=== PATIENT | female | born 1980 ===

== ENCOUNTER 2017-05-02 13:28 | Emergency (ER) | payer OTHER ==
[~2017-05-02] VITALS: Ht 167.6 cm; Wt 59.1 kg
[~2017-05-02 13:28] MED LIST: ASCO100089 PO; BUPR2TAB SL; IBUP-1827 PO; OMEG-145 PO; PREN-12 PO
[2017-05-02 13:33] VITALS: BP 155/85; PULSE 87; RESP 16; O2SAT 99
--- NOTE | 2017-05-02 13:45 | ED.REPORT ---
HPI-Back Pain Under 40 Date of Service May 02, 2017 ED Provider: Yvette Voss Nursing Notes Stated Complaint: FLANK PAIN Chief Complaint: Female Abdominal Pain Allergies: Coded Allergies: No Known Allergies (Unverified , 05/02/17) Scheduled Ascorbic Acid (Vitamin C) 1,000 Mg Tab.chew 1,000 MG PO DAILY Buprenorphine (Buprenorphine) 2 Mg Tab.subl 8 MG SL DAILY [place]-3/Dha/Epa/Fish Oil ([place] 3 500 Softgel) 500 Mg (200 Mg-300 Mg)-1,000 Mg Capsule 1 EACH PO TID Vit W-Ca,Fe,FA(<1 mg) ( Formula) 1 Each Tablet 1 EACH PO DAILY Scheduled PRN Ibuprofen (Ibuprofen) 600 Mg Tablet 600 MG PO QID PRN PRN For Pain General Time Seen by MD: 13:45 Past Medical History Smoking History Current Every Day Smoker, Light Tobacco Smoker Physical Exam Initial Vital Signs Vital Signs (First) Date Time Temp Pulse Resp B/P Pulse Ox O2 Delivery O2 Flow Rate FiO2 05/02/17 13:33 37.2 87 16 155/85 99 Room Air Discharge & Departure Referrals: Tu Schafer MD (PCP) Yvette Voss May 02, 2017 13:45 Jami Barclay MD May 02, 2017 13:47
--- NOTE | 2017-05-02 13:47 | ED.REPORT ---
HPI- Female Date of Service May 02, 2017 ED Provider: Jami Barclay MD Patient is 36 year old female with a history of fibromyalgia who presents to the ED complaining of dysuria onset this morning. Associated symptoms include bilateral flank pain, chills, nausea, vomiting, increased fatigue and decreased appetite. She denies fever, diarrhea or constipation. The patient reports that she had a UTI 3 months ago and prescribed an antibiotic. She states that she felt her symptoms start to come on slightly last night so she took an Azo and drank lots of fluids. Nursing Notes Stated Complaint: FLANK PAIN Chief Complaint: Female Abdominal Pain Nursing Notes Reviewed: Yes Allergies: Coded Allergies: No Known Allergies (Unverified , 05/02/17) Scheduled Ascorbic Acid (Vitamin C) 1,000 Mg Tab.chew 1,000 MG PO DAILY Buprenorphine (Buprenorphine) 2 Mg Tab.subl 8 MG SL DAILY [place]-3/Dha/Epa/Fish Oil ([place] 3 500 Softgel) 500 Mg (200 Mg-300 Mg)-1,000 Mg Capsule 1 EACH PO TID Ondansetron ODT (Ondansetron ODT) 8 Mg Tab.rapdis 8 MG PO Q8H Vit W-Ca,Fe,FA(<1 mg) ( Formula) 1 Each Tablet 1 EACH PO DAILY Sulfamethoxazole/Trimeth 800-160 mg (Bactrim DS) 1 Each Tablet 1 TABLET PO BID Scheduled PRN Ibuprofen (Ibuprofen) 600 Mg Tablet 600 MG PO QID PRN PRN For Pain General Time Seen by MD: 13:45 Chief Complaint Dysuria Hx Obtained From: Patient Arrived By: Walk-in Sudden in Onset?: Yes Onset Occurred: 1 - 4 hours ago Symptom Duration: Since onset Location: : Flank left: Flank right Quality: Burning, Painful Severity: Current: Moderate Sexual History / Control: Reports Pt is sexually active Recent Healthcare: No recent hospitalization Similar Sx Previous: Yes Past Medical History Past Medical History 3 UTI's in the past 6months (as of 05/02/17) fibromyalgia Past Surgical History axillary excision x2 Reports: Smoking History Current Every Day Smoker, Light Tobacco Smoker Social History Other Social History: , Lives with children Ambulatory Status Independent Review of Systems Review of Systems Note: +decreased appetite Constitutional: Reports: Chills, Fatigue, Denies: Fever GI: Reports: Nausea, Vomiting, Denies: Constipation, Diarrhea Female: Reports: Dysuria, Flank pain Skin: Denies Itching, Denies Rash Complete sys rev & neg: except as marked. Respiratory: Denies: Non-productive cough, Shortness of breath Physical Exam Initial Vital Signs Vital Signs (First) Date Time Temp Pulse Resp B/P Pulse Ox O2 Delivery O2 Flow Rate FiO2 05/02/17 13:33 37.2 87 16 155/85 99 Room Air Initial VS: Reviewed, Vital signs abnormal Female Genitourinary: Exam deferred General/Constitutional: Awake, Alert Respiratory / Chest: Atraumatic, Breath sounds NL, Breath sounds = bilat, No respiratory distress Cardiovascular: Heart rate NL, Regular rhythm, Heart sounds NL Abdomen: Atraumatic, Soft, Non-tender BACK: mild bilateral CVA tenderness Skin: Atraumatic, Color NL, No rash, Warm, Dry Head / Eyes: Atraumatic, Normocephalic, PERRL, EOMI Neurologic: Oriented X3, Speech NL, No motor deficits, No sensory deficits Psychiatric: Affect NL, Mood NL Interpretation & Diagnostics Lab Results Interpretation Result Diagram: 05/02/17 1355 05/02/17 1355 Test 05/02/17 13:35 05/02/17 13:55 05/02/17 14:06 Hold Lopez Top Tube Received (Received) White Blood Count 7.8th/mm3 (3.8-10.1) Red Blood Count 3.70mil/mm3 (3.90-5.20) Hemoglobin 13.2g/dL (12.0-15.6) Hematocrit 38.2% (35.0-46.0) Mean Corpuscular Volume 103.2fL (81-100) Mean Corpuscular Hemoglobin 35.7pg (27.0-35.0) Mean Corpuscular Hemoglobin Concent 34.6% (32.0-37.0) Red Cell Distribution Width 15.0% (12.3-15.4) Platelet Count 219bil/L (150-400) Neutrophils (%) (Auto) 69.5% (40-74) Lymphocytes (%) (Auto) 21.8% (14-46) Monocytes (%) (Auto) 7.8% (4-12) Eosinophils (%) (Auto) 0.4% (0-5) Basophils (%) (Auto) 0.4% (0-3) Sodium Level 137mEq/L (134-144) Potassium Level 4.2mEq/L (3.5-5.2) Chloride Level 95mEq/L (97-108) Carbon Dioxide Level 23mmol/L (18-29) Blood Urea Nitrogen 7mg/dL (6-20) Creatinine 0.40mg/dL (0.57-1.00) Estimat Glomerular Filtration Rate 262mL/min (>59) Glucose Level 79mg/dL (60-99) Calcium Level 9.3mg/dL (8.5-10.1) Urine Color [place] (YELLOW) Urine Appearance Hazy (CLEAR,HAZY) Urine pH 8.0 (5.0-8.0) Urine Specific [place] 1.015 (1.003-1.035) Urine Protein 100mg/dL (NEG,TRACE) Urine Glucose (UA) 250mg/dL (NEGATIVE) Urine Ketones 40mg/dL (NEGATIVE) Urine Occult Blood Large (NEGATIVE) Urine Nitrite Positive (NEGATIVE) Urine Bilirubin Moderate (NEGATIVE) Urine Ictotest Positive (Negative) Urine Urobilinogen 4.0mg/dL (NORMAL) Urine Leukocyte Esterase Small (NEGATIVE) Urine RBC 3-10/hpf (0-2) Urine WBC 0-5/hpf (0-5) Urine Epithelial Cells None/hpf (NONE-MOD) Urine Crystals None seen (NONE SEEN) Urine Bacteria Few/hpf (NONE-FEW) Urine Hyaline Casts None/lpf (NONE) Urine Granular Casts None seen (NONE SEEN) Urine Waxy Casts None seen (NONE SEEN) Urine Red Blood Cell Casts None seen (NONE SEEN) Urine White Blood Cell Casts None seen (NONE SEEN) Urine Mucus None seen (None Seen) Urine Trichomonas None seen (NONE SEEN) Urine Yeast None (NONE SEEN) Urinalysis Comment None Urine Culture Reflexed Indicated Re-Eval/Medical Decision Med Decision/Clinical Course The patient presents with some pretty significant symptoms but only minimal findings on exam and per her lab studies. She is normal vital signs. She was initially hypertensive which may be related to pain or related to opiate withdraw she is on Subutex for chronic pain. She does not appear to have colicky pain and it seems too early for pyelonephritis without any other symptoms in 2-3 urinary tract infection. Partial list of diagnoses considered were pyelonephritis, renal colic, urinary tract, PID, and bowel obstruction. Re-Evaluation/Progress : Time of Eval: 14:59 Re-Evaluation/Progress Note: Discussed lab results and plan for discharge. Patient understands and agrees to plan. All questions were addressed. Counseled Regarding: Diagnosis, Lab results, Need for follow-up, When/why to return to ED Discharge & Departure Impression: Primary Impression: Urinary tract infection Urinary tract infection type: site unspecified Hematuria presence: without hematuria Qualified Code: N39.0 - Urinary tract infection, site not specified Disposition: Home Discharge Condition All VS Reviewed: Yes Condition: Stable Patient Instructions: Urinary Tract Infection in Women (ED) Additional Instructions: Your urine showed that you have an UTI. Take Bactrim 2x a day for 5 days. Be sure to drink plenty of fluids. Urinating after intercourse and frequently changing underwear can also help prevent future UTIs. Follow up with your primary care physician next week. Return to the emergency department if you develop any new or concerning symptoms. Referrals: Tu Schafer MD (PCP) Devika Attestation Portions of this note were transcribed by Lolita Hernandez. I, Dr. Barclay personally performed the history, physical exam and medical decision-making; I reviewed and confirmed the accuracy of the information in the transcribed note. Signed by: Devika Kingston, 05/02/17 copies to: Tu Schafer MD, Jena M MD May 02, 2017 13:47 Marely Hernandez May 02, 2017 13:54
[2017-05-02] MEDS ORDERED: 0.9% Sodium Chloride 1,000 ML IV ONE (14:00)
[2017-05-02 14:09] LABS: BASOPHILS % (AUTO) 0.4 % (0-3); EOSINOPHILS % (AUTO) 0.4 % (0-5); MONOCYTES % (AUTO) 7.8 % (4-12); Mean Corpuscular Hemoglobin 35.7 pg (27.0-35.0); Mean Corpuscular Volume 103.2 fL (81-100); NEUTROPHILS % (AUTO) 69.5 % (40-74); Platelet Count 219 bil/L (150-400)
[2017-05-02 14:51] LABS: APPEARANCE,URINE HAZY (CLEAR,HAZY); COLOR,URINE ORANGE (YELLOW)
[2017-05-02 14:52] LABS: OCCULT BLOOD,URINE LARGE (NEGATIVE)
[2017-05-02 14:53] LABS: ICTOTEST,URINE POSITIVE (Negative)
[2017-05-02] MEDS ORDERED: SULF1TAB7 PO (14:58)
[2017-05-02] MEDS ORDERED: Ondansetron 2 mg/mL 2 mL Inj IVPUSH ONE (15:20)
[2017-05-02] MEDS ORDERED: ONDA8TAB10 PO (15:20)
[2017-05-02 15:31] VITALS: BP 110/69; PULSE 73; RESP 10; O2SAT 98
== END 2017-05-02 15:34 | disposition home or self-care (01) ==
LOC: SED 13:28
DX: N39.0 Urinary tract infection, site not specified (principal); F17.200 Nicotine dependence, unspecified, uncomplicated
CPT/HCPCS: 36415; 80048; 81000; 85025; 87086; 87088; 96361; 96374; 96375; 99284; J2270; J2405; J7030